=== PATIENT | male | born 1985 | race Hispanic/Latino ===

== ENCOUNTER 2018-11-12 01:44 | Emergency (ER) | payer OTHER ==
[2018-11-12] MEDS ORDERED: LIDOCAINE 5% TOPICAL PATCH TP ONE (02:34)
== END 2018-11-12 03:45 ==
LOC: EDH 01:44
DX: M54.5 Low back pain (principal); M62.830 Muscle spasm of back; Z72.0 Tobacco use; V89.2XXA Person injured in unspecified motor-vehicle accident, traffic, initial encounter; Y93.89 Activity, other specified; Y92.410 Unspecified street and highway as the place of occurrence of the external cause; Y99.8 Other external cause status
CPT/HCPCS: 72100

== ENCOUNTER 2018-11-12 05:56 | Emergency (ER) | payer OTHER | END 2018-11-12 06:30 | LOC: EDH 05:56 | DX: Z02.83 Encounter for blood-alcohol and blood-drug test (principal) ==